=== PATIENT | female | born 1965 | race Caucasian/White ===

== ENCOUNTER → 2023-11-13 19:14 | Outpatient (REF) | payer OTHER, SELFPAY | LOC: WDC 19:14 | PROVIDERS: ATTENDING PHYSICIAN Nurse Practitioner Family; FAMILY PHYSICIAN Family Medicine | DX: Z12.31 Encounter for screening mammogram for malignant neoplasm of breast (principal) | CPT/HCPCS: 77063; 77067 ==

== ENCOUNTER → 2024-04-06 07:51 | Outpatient (REF) | payer OTHER, SELFPAY | LOC: MRI 07:51 | PROVIDERS: ATTENDING PHYSICIAN Nurse Practitioner Family; FAMILY PHYSICIAN Nurse Practitioner Adult Health | DX: H53.9 Unspecified visual disturbance (principal) | CPT/HCPCS: 70553; A9575 ==

== ENCOUNTER → 2024-04-26 07:54 | Outpatient (REF) | payer OTHER, SELFPAY | LOC: HWRCS 07:54 | PROVIDERS: ATTENDING PHYSICIAN Nurse Practitioner Family | DX: R00.2 Palpitations (principal) | CPT/HCPCS: 93005; 93306 ==

== ENCOUNTER → 2024-06-09 08:06 | Outpatient (REF) | payer OTHER, SELFPAY | LOC: RCS 08:06 | PROVIDERS: ATTENDING PHYSICIAN Nurse Practitioner Family | DX: R00.2 Palpitations (principal) | CPT/HCPCS: 93225; 93226 ==

== ENCOUNTER 2024-07-11 08:25 | Emergency (ER) | payer OTHER, SELFPAY ==
[2024-07-11 08:34] VITALS: BP 115/75
--- NOTE | 2024-07-11 09:19 | ED.GENMED ---
History of Present Illness
General
Chief Complaint: Head Injury
Time Seen by Provider: 07/11/24 09:02
History of Present Illness
History of Present Illness:
Patient is a 58-year-old woman presenting to the emergency department with a fall. Patient states for the past few months she is been having episodes of lightheadedness dizziness tunnel vision hearing loss associated with palpitations. She has had
a full workup done with EKG ultrasound Holter monitor CT scan of her head. She is after switch to follow-up with her primary care doctor and printer helper this upcoming week to figure out next steps. She is never passed out from these episodes
however last night she was bending down her cabinet to get aspirin for her back when the symptoms came on. She then syncopized from the event. She woke up on the ground she relates she hit her head on the edge of the marble shower. She did have a
small hematoma to the left side of her head. She went to sleep and this morning her sister noticed that she was slower to respond so they brought her in for further evaluation. She does state that she is not to her baseline. Patient has had
multiple concussions in the past and this does feel similar. She is not on a blood thinner. She is on estradiol secondary to her complete hysterectomy. No pleuritic chest pain or leg swelling or hemoptysis or recent travel or malignancy. She is
asymptomatic in between these episodes. These episodes have happened daily.
Past History
Past History
ED Past Medical History: None
Social History
Tobacco: Non-smoker
Living: with family
Employment: Employed
Phy Exam
Physical Exam
Physical Exam:
GENERAL: no acute distress
HEENT: Left parietal hematoma with 1 cm patch of dried blood, no laceration, no active bleeding, extraocular muscles intact, no signs of entrapment, dentition intact, no other obvious trauma
NECK: no midline tenderness, normal range of motion, NEXUS criteria negative, no other obvious trauma
BACK: no midline tenderness, no other obvious trauma
CHEST: no tenderness, no flail segment, no subcutaneous emphysema, no other obvious trauma
LUNGS: clear to auscultation bilaterally
CARDIOVASCULAR: regular rate and rhythm
ABDOMEN: soft, non-tender, no masses, no other obvious trauma
PELVIS: stable, no obvious injury
EXTREMITIES: moving all extremities, distal pulses intact, no other obvious trauma
NEUROLOGIC: awake, alert x 3, no focal deficits
Course
Orders/Labs/Results
Orders:
Orders
07/11/24 09:18
CT Head W/o Iv Contrast Urgent
Comment:
Reason For Exam: fall, hematoma left parietal
07/11/24 09:25
Electrocardiogram (*1) Urgent
Reason for Study: Syncope
EKG- Treatment ONCE
07/11/24 09:26
Tetanus/Diphth/Acelpertussis [Adacel] 0.5 ml IM .ONCE ONE
07/11/24 09:35
Basic Metabolic Panel Urgent
Complete Blood Count/With Diff Urgent
Free T4 Urgent
Magnesium Urgent
Thyroid profile [TSH Reflex To Free T4] Urgent
Abnormal Lab Results
07/11/24
09:35
RBC 4.08 L 10^6/uL
(4.20-5.40)
Hct 36.8 L %
(37.0-47.0)
Absolute Lymphs (auto) 0.8 L 10^3/uL
(1.2-3.4)
Neutrophils % 81.1 H %
(42.2-75.2)
Lymphocytes % 11.9 L %
(20.5-51.1)
BUN 18 H mg/dl
(7-17)
Glucose 124 H mg/dl
(70-99)
TSH (Reflex) 0.40 L uIU/ml
(0.47-4.68)
07/11/24 09:35
07/11/24 09:35
Vital Signs
Initial and Last Documented VS:
Initial Vital Signs
Temp Pulse Resp BP Pulse Ox
97.8 F 83 20 115/75 99
07/11/24 08:34 07/11/24 08:34 07/11/24 08:34 07/11/24 08:34 07/11/24 08:34
Last Documented Vital Signs
Temp Pulse Resp BP Pulse Ox
97.8 F 78 18 114/73 98
07/11/24 08:34 07/11/24 10:00 07/11/24 10:00 07/11/24 10:00 07/11/24 10:00
MDM/Problems Addressed
Differential Diagnosis Includes:
Patient is a 58-year-old woman presenting to the emergency department with a syncopal event that led her to hitting her head last night around midnight. Vitals here are unremarkable and exam does show a left-sided parietal hematoma with no
laceration or active bleeding. Will rule out traumatic intracranial injury given the change in her mental status this morning per the sister. Will update tetanus. Regarding the syncopal event she did have a prodrome which is reassuring however
per the Holter monitor report below I am concerned for cardiac arrhythmia given that these were the symptoms that she was having prior. Will check blood work to evaluate for electrolyte derangements and thyroid abnormality. Will obtain EKG.
Holter monitoring was performed for 34:26. The recorder was hooked up at
8:22 AM (Day 1) on 06/09/2024.
- Sinus rhythm was present for the majority of the study with an average HR of
76 bpm (49-134 bpm). No pauses
-Supraventricular ectopy: Rare isolated PAC's and couplets. Short runs of
narrow complex SVT lasting up to 28 beats at max HR of 181 bpm with symptoms
of 'strong flutter' possibly corresponding to arrhythmia
-Ventricular ectopy: Rare isolated PVC
-Symptoms of 'flutter and shortness of breath' corresponded to a normal sinus
rhythm. Symptoms of a 'strong flutter and shortness of breath' corresponded
to a sinus tachycardia and run of atrial tachycardia. Symptoms of
'lightheadedness' corresponded to normal sinus rhythm
- No prior Holter for comparison
*Critical Care Note
Total Time (30-74mins, 75-104mins- exclusive of procedures): Not Applicable
Update Note
Update Note:
On reevaluation patient resting comfortably. She remains at her baseline. EKG per my interpretation normal sinus rhythm. During her visit here patient's monitor did not show any arrhythmia. I did offer patient admission for observation given the
event however patient would prefer to go home. She does state that her son is at home as well. I did discuss with on-call cardiology who states is likely SVT causing the symptoms. No interventions at this time given her heart rate has been in the
50s 60s. She is appropriate for outpatient follow-up. Patient is following up with [facility] cardiology. Strict return precautions given. Will discharge at this time.
ED Attending Note
-
Portions of this chart may have been created with voice recognition software.� Occasional wrong word or��sound alike� substitutions may have occurred due to the inherent limitations of voice recognition software.
Discharge Plan
Departure
Patient Disposition: Home (Routine Discharge)
Date of Disposition: 07/11/24
Time of Disposition: 11:08
Patient with high blood pressure during this ER visit?: No
Discharge Problem:
Syncope, Concussion
Instructions: Concussion, Adult (DC)
Prescriptions:
No Action
hydrocodone-acetaminophen 1 TABLET tablet
1 tab PO Q4HPRN PRN (Reason: pain) Qty: 15 0RF
mupirocin 2 % ointment
1 applic topical QID Qty: 15 0RF
sulfamethoxazole-trimethoprim [Bactrim DS] 1 EACH tablet
1 ea PO BID Qty: 20 0RF
Referrals:
Demetria Adkins CRNP [Family Provider] -
Interventions
Interventions:
*Risk Screen - Suicide Last Done: 07/11/24 08:40
*General Assessment Last Done: 07/11/24 09:35
*Neglect/Abuse Screening Last Done: 07/11/24 08:40
ED- Fall Risk Assessment Last Done: 07/11/24 09:35
*ED COVID-19 Vaccine History Last Done: 07/11/24 09:35
ED- Neurological Assessment Last Done: 07/11/24 09:35
ED-Skin Assessment Last Done: 07/11/24 09:35
Discharge Date and Time
Print Language: DANISH
[2024-07-11 09:45] LABS: % Basophils 0.3 % (0-2); % Eosinophils 0.5 % (0-6); % Immature Granulocytes 0.3 % (0-0.5); % Lymphocytes 11.9 % (20.5-51.1); % Monocytes 5.9 % (1.7-9.3); % Neutrophils 81.1 % (42.2-75.2); Absolute Lymphocytes 0.8 10^3/uL (1.2-3.4); Absolute Monocytes 0.4 10^3/uL (0.1-0.6); Absolute Neutrophils 5.1 10^3/uL (1.4-6.5); Hematocrit 36.8 % (37.0-47.0); Hemoglobin 12.4 g/dL (12.0-16.0); Mean Corp Hgb Conc. 33.7 g/dL (33.0-37.0); Mean Corpuscular Hgb 30.4 pg (27.0-31.0); Mean Corpuscular Volume 90.2 fL (81.0-99.0); Nucleated Red Blood Cells % 0 %; Platelet Count 226 10^3/uL (130-400); Red Blood Cell Count 4.08 10^6/uL (4.20-5.40); Red Cell Dist. Width 13.4 % (11.5-14.5); White Blood Cell Count 6.3 10^3/uL (4.8-10.8)
[2024-07-11 10:00] VITALS: BP 114/73
[2024-07-11 10:02] LABS: Blood Urea Nitrogen 18 mg/dl (7-17); Calcium 9.4 mg/dl (8.4-10.2); Carbon Dioxide 26 mmol/L (22-30); Chloride 101 mmol/L (98-107); Glucose 124 mg/dl (70-99); Magnesium 1.9 mg/dl (1.6-2.3); Potassium 4.4 mmol/L (3.5-5.1); Sodium 137 mmol/L (135-145); eGFR > 60.00
[2024-07-11] MEDS: ADACEL 0.5 ML IM (10:20)
[2024-07-11 11:01] LABS: Free T4 1.21 ng/dl (0.78-2.19)
[2024-07-11 11:45] VITALS: BP 104/75
== END 2024-07-11 12:05 | disposition home or self-care (01) ==
LOC: EMR 08:25
PROVIDERS: EMERGENCY PHYSICIAN Student in an Organized Health Care Education/Training Program; FAMILY PHYSICIAN Nurse Practitioner Family
DX: R55 Syncope and collapse (principal); S06.0XAA Concussion with loss of consciousness status unknown, initial encounter; S00.83XA Contusion of other part of head, initial encounter; W19.XXXA Unspecified fall, initial encounter; Z23 Encounter for immunization
CPT/HCPCS: 99285; 90471; 70450; 80048; 83735; 84439; 84443; 85025; 90715; 93005